=== PATIENT | female | born 1955 | race Caucasian/White ===

== ENCOUNTER 2019-09-15 15:27 | Outpatient (CLI) | payer MEDICARE ==
--- NOTE | 2019-09-15 16:13 | XRAY Report ---
Reason: PAIN IN UNSPECIFIED HAND/PAIN IN COCCYX Procedure Date: 09/15/2019 Accession Number: [id number] / [id number] Procedure: XR - Hand 3 View BILAT CPT Code: Final Report FULL RESULT: EXAMS: 1. Right Hand Radiography 2. Left Hand Radiography EXAM DATE: 09/15/2019 03:47 PM. CLINICAL HISTORY: Hand pain after fall. COMPARISON: None. TECHNIQUE: 3 views each hand. FINDINGS: Right: Bones: Normal. No fractures or bone lesions. Joints: There is predominantly distal interphalangeal joint space narrowing with proliferative as well as erosive changes, erosive arthritis. Similar changes are also seen at the first carpometacarpal articulation. Soft Tissues: Normal. No soft tissue swelling. Left: Bones: Normal. No fractures or bone lesions. Joints: Degenerative changes predominantly in the distal interphalangeal joints, to a lesser degree and proximal interphalangeal joints and at the first carpometacarpal articulation. Overall less severe on the left when compared to the right. Soft Tissues: Normal. No soft tissue swelling. 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 No acute fracture or dislocation. RADIA
--- NOTE | 2019-09-16 13:52 | XRAY Report ---
Reason: PAIN IN UNSPECIFIED HAND/PAIN IN COCCYX Procedure Date: 09/15/2019 Accession Number: [id number] / [id number] Procedure: XR - Sacrum/Coccyx CPT Code: Final Report FULL RESULT: EXAM: SACRUM AND COCCYX RADIOGRAPHY EXAM DATE: 09/15/2019 03:41 PM. HISTORY: PAIN IN UNSPECIFIED HAND/PAIN IN COCCYX. COMPARISONS: None. TECHNIQUE: 3 views. FINDINGS: Alignment: Normal. The sacrum and coccyx are normally aligned. Bones: Normal. No fracture or bone lesion. Joints: Grade 1 anterolisthesis and moderate disk height loss at L4-L5. The sacroiliac joints and visualized hips are within normal limits. Soft Tissues: Unremarkable. IMPRESSION: 1. Normal sacrum and coccyx radiography. 2. Moderate disk loss and grade 1 anterolisthesis at L4-L5. RADIA
== END 2019-09-15 15:28 | disposition home or self-care (01) ==
LOC: DI 15:27
PROVIDERS: ATTEND Nurse Practitioner Family
DX: M19.042 Primary osteoarthritis, left hand (principal); M19.041 Primary osteoarthritis, right hand; M18.0 Bilateral primary osteoarthritis of first carpometacarpal joints; M51.36 Other intervertebral disc degeneration, lumbar region; M43.16 Spondylolisthesis, lumbar region
CPT/HCPCS: 72220

== ENCOUNTER 2020-04-04 18:59 | Outpatient (CLI) | payer MEDICARE | END 2020-04-04 19:00 | disposition short-term general hospital (02) | LOC: EMS 18:59 | PROVIDERS: ATTEND Surgery | DX: R29.810 Facial weakness (principal); R53.1 Weakness; R13.10 Dysphagia, unspecified | CPT/HCPCS: A0425; A0429 ==

== ENCOUNTER 2021-08-02 21:36 | Outpatient (CLI) | payer MEDICARE | END 2021-08-02 21:37 | disposition critical access hospital (66) | LOC: EMS 21:36 | DX: R07.9 Chest pain, unspecified (principal) | CPT/HCPCS: A0425; A0427 ==

== ENCOUNTER 2021-08-02 22:10 | Emergency (ER) | payer MEDICARE ==
[2021-08-02 22:33] LABS: BASOPHILS # (AUTO) 0.1 10^3/uL (0.0-0.1); BASOPHILS % (AUTO) 0.6 %; EOSINOPHILS # (AUTO) 0.3 10^3/uL (0.0-0.7); HCT - HEMATOCRIT 36.7 % (37.0-47.0); HGB - HEMOGLOBIN 12.3 g/dL (12.0-16.0); LYMPHOCYTES # (AUTO) 2.8 10^3/uL (1.5-3.5); LYMPHOCYTES % (AUTO) 33.9 %; MEAN CORPUSCULAR HGB CONC 33.5 g/dL (32.0-36.0); MEAN CORPUSCULAR VOLUME 89.5 fL (81.0-99.0); MEAN PLATELET VOLUME 9.3 fL (7.9-10.8); MONOCYTES # (AUTO) 0.4 10^3/uL (0.0-1.0); NEUTROPHILS # (AUTO) 4.7 10^3/uL (1.5-6.6); PLT - PLATELET COUNT 250 10^3/uL (130-450); WHITE BLOOD COUNT 8.2 x10^3/uL (4.8-10.8)
[2021-08-02 22:47] LABS: ALBUMIN 4.2 g/dL (3.2-5.5); ALBUMIN/GLOBULIN RATIO 1.5 (1.0-2.2); BILIRUBIN,TOTAL 0.5 mg/dL (0.2-1.0); CALCIUM 9.8 mg/dL (8.5-10.3); CREATININE 0.7 mg/dL (0.4-1.0); POTASSIUM 3.9 mmol/L (3.5-5.0)
--- NOTE | 2021-08-02 23:16 | XRAY Report ---
PROCEDURE: Chest 1 View X-Ray INDICATIONS: Chest pain TECHNIQUE: One view of the chest was acquired. COMPARISON: None FINDINGS: Surgical changes and devices: None. Lungs and pleura: No pleural effusions or pneumothorax. Lungs are clear. Mediastinum: Mediastinal contours appear normal. Heart size is normal. Bones and chest wall: No suspicious bony lesions. Overlying soft tissues appear unremarkable. IMPRESSION: No evidence acute pulmonary process. Reviewed by: Karthikeyan Mondragon MD on 08/02/2021 11:15 PM PDT Approved by: Karthikeyan Mondragon MD on 08/02/2021 11:15 PM PDT Station ID: [id number]
--- NOTE | 2021-08-03 01:02 | ED Physician Documentation ---
PD HPI CHEST PAIN - Stated complaint Stated Complaint: CP - Chief complaint Chief Complaint: Cardiac - History obtained from History obtained from: Patient - Additional information Additional information: Patient comes emergency department chief complaint of stabbing sternal chest pain that started around 1900. Patient states that nothing seemed to really precipitated. She states that it lasted for 3 h and when the medics gave her a spray of nitro, it went away. Patient denies radiation of the pain. No nausea or vomiting. No which shortness of breath. No diaphoresis or lightheadedness. No other complaints at this time. She states she is currently pain-free. She has no known history of coronary artery disease. She is not a smoker and never has been. She does have a history of a CVA in the past and takes a baby aspirin daily for this. She denies recent dyspnea on exertion. No chest pain with exertion. Patient states she goes to the gym about 3 days a week and has not had any trouble. Review of Systems Ten Systems: 10 systems reviewed and negative Constitutional: reports: Reviewed and negative Eyes: reports: Reviewed and negative Ears: reports: Reviewed and negative Nose: reports: Reviewed and negative Throat: reports: Reviewed and negative Cardiac: reports: Reviewed and negative Respiratory: reports: Reviewed and negative GI: reports: Reviewed and negative : reports: Reviewed and negative Skin: reports: Reviewed and negative Musculoskeletal: reports: Reviewed and negative Neurologic: reports: Reviewed and negative Psychiatric: reports: Reviewed and negative Endocrine: reports: Reviewed and negative Immunocompromised: reports: Reviewed and negative PD PAST MEDICAL HISTORY - Past Medical History Past Medical History: Yes Cardiovascular: High cholesterol Respiratory: Sleep apnea, CPAP use Neuro: CVA Endocrine/Autoimmune: Type 2 diabetes Musculoskeletal: Osteoarthritis - Past Surgical History Past Surgical History: Yes General: Cholecystectomy Ortho: Knee replacement HEENT: Tonsil/Adenoidectomy - Present Medications Home Medications: Ambulatory Orders Medication Instructions Recorded Confirmed Ibuprofen [Motrin] 400 mg PO Q6H PRN #20 tablet 07/25/16 08/02/21 Acyclovir 400 mg PO BID 03/02/21 08/02/21 Aspirin [Aspirin EC] 81 mg PO DAILY 03/02/21 08/02/21 Atorvastatin Calcium [Lipitor] 80 mg PO QPM 03/02/21 08/02/21 Cyanocobalamin (Vitamin B-12) 1,000 mcg PO DAILY 03/02/21 08/02/21 [Vitamin B-12] Diclofenac Sodium [Voltaren 50 gm TP DAILY 03/02/21 08/02/21 Arthritis Pain] metFORMIN [Glucophage] 500 mg PO BID 03/02/21 08/02/21 Nitroglycerin [Nitrostat] 0.4 mg SL Q5MIN PRN #20 tablet 08/03/21 - Allergies Allergies/Adverse Reactions: Allergies Allergy/AdvReac Type Severity Reaction Status Date / Time allopurinol Allergy Edema Verified 08/02/21 22:15 Penicillins Allergy Rash Verified 08/02/21 22:15 - Social History Does the pt smoke?: No Smoking Status: Never smoker Does the pt drink ETOH?: Yes Does the pt have substance abuse?: No - Immunizations Immunizations are current?: No Immunizations: TDAP >10years/unknown PD ED PE NORMAL - Vitals Vital signs reviewed: Yes - General General: Alert and oriented X 3, No acute distress - HEENT HEENT: Atraumatic, PERRL, EOMI, Moist mucous membranes - Neck Neck: Supple, no meningeal sign - Cardiac Cardiac: RRR, No murmur, Strong equal pulses - Respiratory Respiratory: No respiratory distress, Clear bilaterally - Abdomen Abdomen: Soft, Non tender, Non distended - Derm Derm: Normal color, Warm and dry, No rash - Extremities Extremities: No deformity, No edema, No calf tenderness / cord - Neuro Neuro: Alert and oriented X 3, foot tender 2-12 intact, Normal speech, Other (Grossly intact) - Psych Psych: Normal mood, Normal affect Results - Vitals Vitals: Vital Signs - 24 hr 08/02/21 08/02/21 08/02/21 22:16 22:19 23:38 Temperature 36.2 C L 36.2 C L Heart Rate 59 L 59 L 53 L Respiratory 12 14 15 Rate Blood Pressure 167/70 H 167/70 H 126/57 L O2 Saturation 97 98 98 08/03/21 08/03/21 01:00 01:20 Temperature 36.4 C L 36.4 C L Heart Rate 63 63 Respiratory 18 18 Rate Blood Pressure 125/62 125/62 O2 Saturation 99 99 Oxygen O2 Source Room air - EKG (time done) 2212 Rate: Rate (enter#) (53) Rhythm: NSR [place]: LAD Intervals: Normal [place] QRS: Normal Ischemia: Normal ST segments. No: T wave inversion Compare to prior EKG: Old EKG unavailable Computer interpretation: Agree with computer - Labs Labs: Laboratory Tests 08/02/21 08/02/21 08/02/21 22:25 22:25 22:25 WBC 8.2 RBC 4.10 L Hgb 12.3 Hct 36.7 L MCV 89.5 MCH 30.0 MCHC 33.5 RDW 13.0 Plt Count 250 MPV 9.3 Neut # (Auto) 4.7 Lymph # (Auto) 2.8 [place] # (Auto) 0.4 Eos # (Auto) 0.3 Baso # (Auto) 0.1 Absolute Nucleated RBC 0.00 Nucleated RBC % 0.0 Sodium 140 Potassium 3.9 Chloride 103 Carbon Dioxide 28 Anion Gap 9.0 BUN 18 Creatinine 0.7 Estimated GFR (MDRD) 83 L Glucose 186 H Calcium 9.8 Total Bilirubin 0.5 AST 23 ALT 29 Alkaline Phosphatase 81 Troponin I High Sens 2.5 Total Protein 7.0 Albumin 4.2 Globulin 2.8 Albumin/Globulin Ratio 1.5 Lipase 38 08/03/21 00:24 WBC RBC Hgb Hct MCV MCH MCHC RDW Plt Count MPV Neut # (Auto) Lymph # (Auto) [place] # (Auto) Eos # (Auto) Baso # (Auto) Absolute Nucleated RBC Nucleated RBC % Sodium Potassium Chloride Carbon Dioxide Anion Gap BUN Creatinine Estimated GFR (MDRD) Glucose Calcium Total Bilirubin AST ALT Alkaline Phosphatase Troponin I High Sens 2.7 Total Protein Albumin Globulin Albumin/Globulin Ratio Lipase - Rads (name of study) CXR Radiology: Final report received, EMP read indepedently, See rad report (neg) PD MEDICAL DECISION MAKING - ED course Complexity details: reviewed results, re-evaluated patient, considered differential, d/w patient ED course: The patient was worked up with an initial cardiac panel of labs which showed a negative troponin at 2.5. Her EKG was unremarkable and chest x-ray was normal. Repeat troponin was drawn and was found to be 2.7 which was not a significant change. I discussed with the patient that I do not know with certainty what is caused her chest pain. Other than age, the patient is fairly low risk, but I do feel that she should follow-up with her doctor as soon as possible to schedule a stress test, particularly since her pain did relieve with nitro. I am giving her a prescription for sublingual nitroglycerin that she may use if needed between now and then. We have discussed having a low threshold for return should she have recurrence of chest pain, especially if it does not relieve with nitro or if she has other concerning associated symptoms. Patient is agreeable. Departure - Departure Disposition: 01 Home, Self Care Clinical Impression: Chest pain Qualifiers: Chest pain type: unspecified Qualified Code(s): R07.9 - Chest pain, unspecified Condition: Stable Instructions: ED Chest Pain Atypical Unkn Cause Prescriptions: Nitroglycerin [Nitrostat] 0.4 mg SL Q5MIN PRN #20 tablet PRN Reason: Chest Pain Comments: Your labs, EKG, and chest x-ray all look terrific. Your second troponin was almost exactly the same as the first. It does not appear that you have had a heart attack tonight. However, given your history of stroke it is best that you follow-up very soon with your primary care doctor to discuss having a stress test done. This will help further evaluate heart and light any lingering concerns of significant heart disease to rest. Since the nitroglycerin was helpful today, we'll give you a prescription For this to have at home as needed. If you have intense pain that is not helped by the nitroglycerin or anything else, especially if associated with shortness of breath, nausea, lightheadedness, or sweating, please return to the emergency department immediately. Discharge Date/Time: 08/03/21 01:20
[2021-08-03 01:03] VITALS: BP 125/62
== END 2021-08-03 01:20 | disposition home or self-care (01) ==
LOC: EDUNIT# → ED 22:10
DX: R07.89 Other chest pain (principal); Z86.73 Personal history of transient ischemic attack (TIA), and cerebral infarction without residual deficits; E11.9 Type 2 diabetes mellitus without complications; Z79.84 Long term (current) use of oral hypoglycemic drugs
CPT/HCPCS: 36415; 80053; 83690; 84484; 85025; 93005; 99284

== ENCOUNTER 2021-08-29 13:49 | Outpatient (CLI) | payer MEDICARE ==
--- NOTE | 2021-08-29 15:50 | DEXA Report ---
PROCEDURE: Dexa Spine and/or Hip INDICATIONS: ASYMPTOMATIC MENOPAUSAL STATE TECHNIQUE: Dual energy x-ray absorptiometry (DXA) was performed on a [employer] System. Regions measur ed are the AP Spine, femoral neck, and if needed forearm. COMPARISON: None. FINDINGS: Lumbar Spine: Bone Mineral Density 1.175 g/cm/cm,T score 0, normal Left Hip: Bone Mineral Density 0.898 g/cm/cm,T score -0.9, normal Left Femoral Neck: Bone Mineral Density 0.825 g/cm/cm, T score -1.5, mild osteopenia (T score greater or equal to -1.0: NORMAL) (T score from -1.1 to -2.4: OSTEOPENIA) (T score less than or equal to -2.5 to: OSTEOPOROSIS) Impression: Mild left femoral neck osteopenia. Patients with diagnosis of osteoporosis or osteopenia should have regular bone mineral density assess ment. For those eligible for Medicare, routine testing is allowed once every 2 years. Testing frequ ency can be increased for patients who have rapidly progressing disease or for those who are receivin g medical therapy to restore bone mass. Reviewed by: Jael Hebert MD on 08/29/2021 3:49 PM PDT Approved by: Jael Hebert MD on 08/29/2021 3:49 PM PDT Station ID: [id number]
== END 2021-08-29 13:50 | disposition home or self-care (01) ==
LOC: DI 13:49
PROVIDERS: ATTEND Nurse Practitioner Family
DX: M85.88 Other specified disorders of bone density and structure, other site (principal); Z78.0 Asymptomatic menopausal state

== ENCOUNTER 2021-08-29 13:50 | Outpatient (CLI) | payer MEDICARE ==
--- NOTE | 2021-08-30 08:03 | Mammography Report ---
BILATERAL DIGITAL SCREENING MAMMOGRAM 3D/2D: 08/29/2021 CLINICAL: Routine screening. Baseline exam. Last exam over 10 years ago. No prior exams were available for comparison. There are scattered fibroglandular elements in both br easts. There is a 0.9 cm oval focal asymmetry in the left breast at 1 o'clock anterior depth. No other significant masses, calcifications, or other findings are seen in either breast. IMPRESSION: INCOMPLETE: NEEDS ADDITIONAL IMAGING EVALUATION The 0.9 cm oval focal asymmetry in the left breast is indeterminate. Additional views with possible ultrasound are recommended. This exam was interpreted at Station ID: [id number]. NOTE: For mammograms, a report in lay terms will be sent to the patient. Approximately 15% of breast malignancies will not be visualized mammographically. In the management of a palpable breast mass, a negative mammogram must not discourage biopsy of a clinically suspicious lesion. Electronically Signed By: Noel kenny/alicia:08/29/2021 17:03:03 ACR BI-RADS Category 0: Incomplete 3340F PARENCHYMAL PATTERN: (A) - The breast(s) demonstrate(s) scattered fibroglandular densities. BI-RADS CATEGORY: (0) - 0 Mammo and [place] [id number] Immediate follow-up LATERALITY: (L)
== END 2021-08-29 13:51 | disposition home or self-care (01) ==
LOC: DI 13:50
PROVIDERS: ATTEND Nurse Practitioner Family
DX: Z12.31 Encounter for screening mammogram for malignant neoplasm of breast (principal); N64.89 Other specified disorders of breast

== ENCOUNTER 2021-09-09 11:07 | Outpatient (CLI) | payer MEDICARE ==
--- NOTE | 2021-09-09 12:06 | SLEEP CARE CONSULTATION ---
Information from patient questionnaire entered by Vanesa Gonzales. I have reviewed and concur with the information entered by Vanesa Gonzales. This document represents the service I personally performed and the decisions made by me, Irina Rodriguez ARNP. History of Present Illness Service Date and Time: 09/09/2021 1107 Reason for Visit: New patient, Previously diagnosed sleep apnea, sleep apnea on CPAP therapy Chief Complaint: reports: Other (update supplies) Date of Onset: 2007 Usual bedtime: 2200 Time it takes to fall asleep: 5-10 minutes Snores at night: Yes (if I don't use machine) Reasons for waking at night: reports: Bathroom Toss, Turn, or Twitch while sleeping: No Recalls having dreams: No Usually gets out of bed at: 0800 Feels refreshed in the morning: Yes Morning headache: No Sleepy or fatigued during the day: No Ever fallen asleep while driving: No Takes day naps: No Prior sleep studies: Yes Year and Where: 2011 or 2012 through [facility] Type of Sleep Study: Home sleep study Additional HPI information: MARK FAN was previously diagnosed to have unknown, AHI unknown, sleep apnea- hypopnea syndrome and comes in today to establish care for CPAP therapy and update supplies. - Parasomnia Symptoms Ever been unable to move upon waking from sleep: No Walks in sleep: No Talks in sleep: No Ever acted out dreams in sleep: No Ever felt weak in the knees when startled or emotional: No Bothered by creepy, crawly, restless sensations in legs: No Problems with memory or concentration: No CPAP Compliance Data - Data Reviewed with Patient Average duration of nightly device use: 7 hours 19 minutes Compliance rate %: 82 Current pressure setting (cmH2O): 4-20 (median 10.0, avg 11.7, max 12.8) Average residual AHI: 1.8 Central apnea: 0.1 Obstructive apnea: 1.3 Compliance data discussion: She has been using an Airsense 10 CPAP machine. She is using an AirFit N20 nasal mask. She has a back up mask and will use a travel APAP when traveling. She has been getting her supplies CPAP supply in [place], [place], online. Subjective Patient concerns: reports: air blowing in eyes (just needs adjustment, occasional), dry mouth, nose, throat (dry throat). denies: aerophagia, mask discomfort, mask leak noise, condensation in mask/hose, nasal congestion, epistaxis, other Observed to snore while using device: No Current pressure setting perceived as: comfortable On therapy, patient: reports: sleeping better, awakening more refreshed, being more awake and alert during the day, more rested overall. denies: drowsiness while driving Initial Jackson Sleepiness Scale score: 4 (in 2020) Past Medical History Past Medical History: reports: Diabetes, Stroke (04/04/2020), Arthritis, Gout, Other (high cholesterol) Social History The patient's occupation is a RE. Patient is Single and lives in . Have you smoked in the past 12 months: No Cigarettes per day (20/pack): 10 Years of smokin Quit date: 1972 Smoking Pack Years: 1.0 Alcohol use: Yes Alcohol amount and frequency: 1-2, once/twice per month Caffeine use: Yes Caffeine amount and frequency: 2-3 cups/day Family History Family history of sleep disordered breathing: Yes Family Hx Sleep Apnea: Sibling: Sleep apnea - Treated Allergies and Home Medications Drug allergies reviewed: Yes (allopurinol, penicillins) Home medication list reviewed: Yes (see list in chart, accurate; adding CA and Vit D) Physical Exam Vital signs obtained and entered by: CHELA Flood Blood Pressure: 127/64 Cuff size: wrist Heart Rate: 62 O2 Saturation: 98 Height: 5 ft 4 in Weight: 226 lb Body Mass Index: 38.7 BMI Classification: Obese Heart: regular rate and rhythm Lungs: clear bilaterally Impression and Plan 1. Obstructive Sleep Apnea-Hypopnea Syndrome, unknown, with good treatment compliance and good apnea control. On CPAP therapy, the patient has better sleep quality and is more rested overall. We are trying to obtain patient's last sleep study done in [place]. If we are able to receive this we can just write for a transfer of DME to update her supplies and get a mask refitting. I will have my transport coordinator inform of DME options. A DWO prescription will then be made. Patient also stating that the pressure feels low when she first puts on her mask at night. She states after a few minutes the pressure increases and is comfortable. The patients pressure will be changed to autoCPAP 10-13 cmH20 and increase her ramp starting pressure to 6 cmH2O for patient comfort. Patient advised to contact me if pressure change is uncomfortable so that it can be adjusted. Goals for apnea control discussed. Patient also would like to have a proper mask fitting since she has never had a mask fitting since she started using her CPAP. I can write for a mask refitting to ensure she is wearing the correct size of mask or she may choose to change to a different style of mask that is more comfortable. I will add this to her prescription to transfer her DME and update supplies once we have a copy of her sleep study. If we are unable to obtain a copy of her sleep study I will order a sleep study to be completed before we transfer her DME care. Patient's apnea severity and rationale for treatment to reduce apnea, improve sleep quality and reduce cardiovascular and cerebrovascular events was reviewed. I also reviewed the benefit of consistent device use of CPAP for cerebrovascular disease and diabetes. Patient was encouraged to lose weight for their overall health and to reduce apneas. * Change auto CPAP pressure to 10-13 cmH2O * Increase ramp starting pressure to 6 cmH2O * Transfer DME * Update supplies * Mask refitting * Notify me if snoring with mask or feeling that the pressure is too much or too little * Attempt to lose weight * Call this office if any problems using CPAP * Return for follow up either 1 year or after PSG (depending), or sooner if concerns arise Counseling Topics: Spare mask, Weight loss health impact Visit Type: In Office Time Spent with Patient (minutes): 42 Provider Statement: I spent 100% of the Face to Face Visit with the patient with greater than 50% spent counseling the patient and coordination of care.
[2021-09-09 12:07] VITALS: BP 127/64
== END 2021-09-09 11:08 | disposition home or self-care (01) ==
LOC: SC 11:07
PROVIDERS: ATTEND Nurse Practitioner Family
DX: G47.33 Obstructive sleep apnea (adult) (pediatric) (principal); E66.9 Obesity, unspecified; Z68.38 Body mass index [BMI] 38.0-38.9, adult
CPT/HCPCS: 99203; G0463; 99212

== ENCOUNTER 2021-09-21 08:00 | Outpatient (CLI) | payer MEDICARE ==
--- NOTE | 2021-09-23 08:57 | Ultrasound Report ---
LIMITED ULTRASOUND OF LEFT BREAST AND AXILLA: 09/21/2021 CLINICAL: Patient returns today to evaluate a focal asymmetry in the left breast. Comparison is made to exams dated: 09/21/2021 mammogram and 08/29/2021 mammogram - [facility]. Color flow ultrasound of the left breast 1 o'clock, and axilla regions was performed. Morales scale im ages of the real-time examination were reviewed. There is a 1 cm oval mass with a microlobulated margin in the left breast at 1 o'clock anterior depth 3 cm from the skin. This oval mass is hypoechoic with posterior acoustic shadowing. Color flow luis ging demonstrates that there is no vascularity present. IMPRESSION: SUSPICIOUS OF MALIGNANCY The 1 cm oval mass in the left breast is suspicious of malignancy. An ultrasound guided biopsy is re commended. This exam was interpreted at Station ID: [id number]. Electronically Signed By: Tom Stoner M.D., jr/alicia:09/21/2021 09:11:35 Ultrasound BI-RADS: 4 Suspicious for malignancy BI-RADS CATEGORY: (4) - 4 None [id number] Immediate follow-up LATERALITY: ()
--- NOTE | 2021-09-23 08:57 | Mammography Report ---
UNILATERAL LEFT DIGITAL DIAGNOSTIC MAMMOGRAM 3D/2D: 09/21/2021 CLINICAL: Patient returns today to evaluate a focal asymmetry in the left breast. Comparison is made to exam dated: 08/29/2021 mammogram - [facility]. There are sca ttered fibroglandular elements in left breast. There is a 1 cm oval focal asymmetry with an indistinct margin in the left breast at 1 o'clock anteri or depth 3.5 cm from the skin. No other significant masses or calcifications are seen in the breast. IMPRESSION: INCOMPLETE: NEEDS ADDITIONAL IMAGING EVALUATION The 1 cm oval focal asymmetry in the left breast is indeterminate. An ultrasound is recommended. This exam was interpreted at Station ID: [id number]. NOTE: For mammograms, a report in lay terms will be sent to the patient. Approximately 15% of breast malignancies will not be visualized mammographically. In the management of a palpable breast mass, a negative mammogram must not discourage biopsy of a clinically suspicious lesion. Electronically Signed By: Tom Stoner M.D., jr/alicia:09/21/2021 09:10:06 ACR BI-RADS Category 0: Incomplete 3340F PARENCHYMAL PATTERN: (A) - The breast(s) demonstrate(s) scattered fibroglandular densities. BI-RADS CATEGORY: (0) - 0 Ultrasound [id number] Immediate follow-up LATERALITY: (B)
== END 2021-09-21 08:01 | disposition home or self-care (01) ==
LOC: DI 08:00
PROVIDERS: ATTEND Nurse Practitioner Family
DX: R92.8 Other abnormal and inconclusive findings on diagnostic imaging of breast (principal)

== ENCOUNTER 2021-09-29 09:12 | Outpatient (CLI) | payer MEDICARE ==
[~2021-09-29 09:12] MED LIST: BUFFERED LIDOCAINE 10 ML SYRINGE ONE; LIDOCAINE 1%-EPI 1:100000 20 ML MDV ONE
[2021-09-29] MEDS ORDERED: BUFFERED LIDOCAINE 10 ML SYRINGE IU ONE (11:08)
[2021-09-29] MEDS ORDERED: LIDOCAINE 1%-EPI 1:100000 20 ML MDV SUBQ ONE (11:09)
--- NOTE | 2021-09-30 08:06 | Mammography Report ---
UNILATERAL LEFT DIGITAL DIAGNOSTIC MAMMOGRAM 3D/2D: 09/29/2021 CLINICAL: Post left breast ultrasound biopsy clip placement imaging. Comparison is made to exams dated: 09/21/2021 ultrasound, 09/21/2021 mammogram, and 08/29/2021 mammog [facility]. There are scattered fibroglandular elements in left breast. There is a 1 cm oval focal asymmetry with an indistinct margin in the left breast at 1 o'clock anteri or depth 3.5 cm from the skin. A marker has been placed at the site of mass. No other significant masses or calcifications are seen in the breast. IMPRESSION: INCOMPLETE: NEEDS ADDITIONAL IMAGING EVALUATION Post biopsy marker clip is in the region of the biopsied mass. This exam was interpreted at Station ID: [id number]. NOTE: For mammograms, a report in lay terms will be sent to the patient. Approximately 15% of breast malignancies will not be visualized mammographically. In the management of a palpable breast mass, a negative mammogram must not discourage biopsy of a clinically suspicious lesion. Electronically Signed By: Nallely rubalcava/:09/29/2021 11:34:28 ACR BI-RADS Category 0: Incomplete 3340F PARENCHYMAL PATTERN: (A) - The breast(s) demonstrate(s) scattered fibroglandular densities. BI-RADS CATEGORY: (0) - 0 None [id number] Immediate follow-up LATERALITY: ()
--- NOTE | 2021-10-04 06:24 | Ultrasound Report ---
ULTRASOUND GUIDED BIOPSY LEFT BREAST USING VACUUM DEVICE WITH MARKING DEVICE INSERTED AND POST DIGITA L MAMMOGRAPHIC IMAGIN09/29/2021 CLINICAL: Left breast mass. PATIENT CONSENT: Risks (minor bleeding, infection, vasovagal reaction and repeat procedure), benefits and alternatives were explained to the patient and written informed consent was obtained. Correlation is made to exams dated: 09/21/2021 ultrasound, 09/21/2021 mammogram, and 08/29/2021 mammo [facility]. An ultrasound guided biopsy using real-time ultrasound was performed for the 1 cm abnormality located in the left breast at 1 o'clock anterior depth 3 cm from the skin. The skin was prepped in the usua l manner. A vacuum assisted biopsy needle was placed adjacent to the abnormality under ultrasound gu idance. Once the needle was documented to be in the correct location, a specimen was obtained using an automated biopsy gun. A marker clip was placed at the site of biopsy The specimen was sent to the laboratory for pathological analysis. IMPRESSION: ULTRASOUND GUIDED BIOPSY MALIGNANT Ultrasound guided biopsy of the 1 cm mass in the left breast at 1 o'clock anterior depth 3 cm from th e skin was successful with no apparent post procedure complications. 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 Pathology results are concordant with imaging findings. A surgical/oncologic consu ltation is recommended. This exam was interpreted at Station ID: [id number]. Nallely rubalcava,jr/:10/03/2021 15:54:01 BI-RADS CATEGORY: () - Unspecified - other recall n/a LATERALITY: (B)
== END 2021-09-29 09:13 | disposition home or self-care (01) ==
LOC: DI 09:12
PROVIDERS: ATTEND Nurse Practitioner Family
DX: C50.412 Malignant neoplasm of upper-outer quadrant of left female breast (principal); Z17.0 Estrogen receptor positive status [ER+]
CPT/HCPCS: 19083

== ENCOUNTER 2021-12-13 09:32 | Outpatient (CLI) | payer MEDICARE | END 2021-12-13 09:33 | disposition home or self-care (01) | LOC: SC 09:32 | PROVIDERS: ATTEND Nurse Practitioner Family | DX: G47.33 Obstructive sleep apnea (adult) (pediatric) (principal); R09.02 Hypoxemia | CPT/HCPCS: G0399 ×2; 95806 ==

== ENCOUNTER 2021-12-30 09:06 | Outpatient (CLI) | payer MEDICARE ==
--- NOTE | 2021-12-30 09:16 | SLEEP CARE CONSULTATION ---
Information from patient questionnaire entered by Mark Flood MA. I have reviewed and concur with the information entered by Mark Flood MA. This document represents the service I personally performed and the decisions made by Michael mendez Caren J, ARNP. History of Present Illness Service Date and Time: 12/30/2021 09 Initial [place] Sleepiness Scale score: 4 (in 2020) Current [place] Sleepiness Scale score: 4 Additional HPI information: MARK FAN returns for follow up and results of the recently performed home sleep study. Patient study verified severe obstructive sleep apnea with an average AHI of 31.9 and [place] oxygen saturation of 77%. Patient is currently on nasal CPAP therapy. Nasal autoCPAP is set at 10-13 cmH20. Patient was cautioned about risks of drowsy driving until sleepiness symptoms resolve. Sleep Study - Results Type of Sleep Study: Home sleep study (F/U HOME STUDY) Prior sleep studies: Yes Year and Where: 2011 or 2012 through [facility] Polysomnography/Home Sleep Study results: Physician Impression: The quality of the study is good. The length of the study is adequate (> 240 minutes). Please also see the tabulated and graphic data. 1. Obstructive Sleep Apnea-Hypopnea (ICD-10 G47.33), severe, with an AHI of 31.9/hr and ed[place] SaO2 of 77%. During the study, the patient had 161 apneas (161 obstructive, 0 central, 0 mixed) and 75 hypopneas. The longest episode lasted 117.5 seconds. The respiratory events occurred independently of sleep stage and body position (supine AHI was 29.8 and non-supine, 32.65). 2. Hypoxemia (ICD-10 R09.02), moderate, with the lowest oxygen saturation of 77 % and 33.8 minutes with SaO2 under 90%. Baseline oxygen saturation was normal (Average oxygen saturation was 93%). Allergies and Home Medications Home medication list reviewed: Yes (no changes) Allergy and home medication list: Allergies allopurinol Allergy (Verified 08/02/21 22:15) Edema Penicillins Allergy (Verified 08/02/21 22:15) Rash Review of Systems Review of systems same as previous: No (reoccur breast cancer, another surgery on Sun) Physical Exam Vital signs obtained and entered by: Telehealth visit Height: 5 ft 4 in Impression and Plan 1. Obstructive Sleep Apnea-Hypopnea Syndrome, severe, with lowest oxygen saturation of 77%. Patient to continue using CPAP therapy. Continued positive pressure therapy could benefit cerebrovascular disease and diabetes. On CPAP therapy, the patient has better sleep quality and is more rested overall. She needs a DME supplier to get supplies. For patient supply concerns, I will have my business services coordinator inform of DME options. A DWO prescription will then be made. Patient advised to contact this office if further supply problems. She is using a nasal cushion mask that goes over the nose and is not sure if it is the optimal size for her. She has tried the small and the medium with equal results. I will write for a mask refitting to have size measurement for optimal mask done. She will continue with current pressure of 10-13 cmH2O at this time. I will follow up with her in 1 year. Patient's apnea severity and rationale for treatment to reduce apnea, improve sleep quality and reduce cardiovascular and cerebrovascular events was reviewed. I also reviewed the benefit of consistent device use of CPAP for cerebrovascular disease and diabetes. Patient was advised to try to lose weight to benefit her overall health and reduce apneas. 2. Hypoxemia, moderate, with the lowest oxygen saturation of 77 % and 33.8 minutes with SaO2 under 90%. Her baseline oxygen saturation was normal with an average oxygen saturation of 93%. * Continue auto CPAP pressure at 10-13 cmH2O * Transfer DME * Update supplies * Mask refitting for right size * Notify me if snoring with mask or feeling that the pressure is too much or too little * Attempt to lose weight * Call this office if any problems using CPAP * Return for follow up in 1 year, or sooner if concerns arise Counseling Topics: Weight loss health impact Visit Type: Telehealth Video Video Type: VSee Patient Location: Home Location of Provider: Office Patient agrees and consents to this telehealth visit type: Yes Patient agrees to have their insurance billed: Yes Time Spent with Patient (minutes): 22 Provider Statement: I spent 100% of the Telehealth Video Call with the patient with greater than 50% spent counseling the patient and coordination of care.
== END 2021-12-30 09:07 | disposition home or self-care (01) ==
LOC: SC 09:06
PROVIDERS: ATTEND Nurse Practitioner Family
DX: G47.33 Obstructive sleep apnea (adult) (pediatric) (principal); R09.02 Hypoxemia

== ENCOUNTER 2022-04-11 19:59 | Emergency (ER) | payer MEDICARE ==
[2022-04-11] MEDS ORDERED: lidocaine 1% 20 ML MDV SUBQ ONE (20:57)
--- NOTE | 2022-04-11 21:43 | ED Physician Documentation ---
PD HPI HEAD INJURY - Stated complaint Stated Complaint: FALL,HEAD INJ - Chief complaint Chief Complaint: Laceration - History obtained from History obtained from: Patient, Family - History of Present Illness Mechanism of head injury: Fell Where head injury occurred: Home Location of injury: Left, Back Quality of pain: Pain Associated symptoms: No: LOC, AMS, Amnesia, Nausea / vomiting, Neck pain, Paresthesias, Seizures, Ear drainage, Nasal drainage Symptoms improve with: Rest Symptoms worsen with: Palpation Contributing factors: No: Anticoagulated Similar symptoms before: Diagnosis (laceration) Recently seen: Not recently seen - Additional information Additional information: Previously well 66-year-old female missed a step fell backwards and hit her head against a right iron chair. She did not have loss of consciousness she denies any neck pain she has a laceration to her scalp. She is able to control the bleeding with direct pressure and comes into the emergency department for repair. PD PAST MEDICAL HISTORY - Past Medical History Cardiovascular: High cholesterol Respiratory: Sleep apnea, CPAP use Neuro: CVA Endocrine/Autoimmune: Type 2 diabetes Musculoskeletal: Osteoarthritis - Past Surgical History Past Surgical History: Yes General: Cholecystectomy Ortho: Knee replacement HEENT: Tonsil/Adenoidectomy - Present Medications Home Medications: Ambulatory Orders Medication Instructions Recorded Confirmed Ibuprofen [Motrin] 400 mg PO Q6H PRN #20 tablet 07/25/16 08/02/21 Acyclovir 400 mg PO BID 03/02/21 08/02/21 Aspirin [Aspirin EC] 81 mg PO DAILY 03/02/21 08/02/21 Atorvastatin Calcium [Lipitor] 80 mg PO QPM 03/02/21 08/02/21 Cyanocobalamin (Vitamin B-12) 1,000 mcg PO DAILY 03/02/21 08/02/21 [Vitamin B-12] Diclofenac Sodium [Voltaren 50 gm TP DAILY 03/02/21 08/02/21 Arthritis Pain] metFORMIN [Glucophage] 500 mg PO BID 03/02/21 08/02/21 Nitroglycerin [Nitrostat] 0.4 mg SL Q5MIN PRN #20 tablet 08/03/21 - Allergies Allergies/Adverse Reactions: Allergies Allergy/AdvReac Type Severity Reaction Status Date / Time allopurinol Allergy Edema Verified 04/11/22 20:14 Penicillins Allergy Rash Verified 04/11/22 20:14 - Social History Does the pt smoke?: No Smoking Status: Never smoker Does the pt drink ETOH?: Yes Does the pt have substance abuse?: No - Immunizations Immunizations are current?: No Immunizations: TDAP >10years/unknown Results - Vitals Vitals: Vital Signs - 24 hr 04/11/22 04/11/22 20:07 22:00 Temperature 36.3 C L Heart Rate 63 53 L Respiratory 16 15 Rate Blood Pressure 151/67 H 148/73 H O2 Saturation 98 99 Oxygen O2 Source Room air Departure - Departure Disposition: 01 Home, Self Care Clinical Impression: Occipital scalp laceration Qualifiers: Encounter type: initial encounter Qualified Code(s): S01.01XA - Laceration without foreign body of scalp, initial encounter Condition: Stable Instructions: ED Laceration Scalp Stitch Or Stap Follow-Up: STEPHENIE VELEZ DO [Primary Care Provider] - Comments: Carol be careful when you are washing your hair not to pull on your tim. We are expecting this laceration to heal up well and the tim should be removed in a week to 10 days. This requires a special device for removal and a follow- up with your primary care doctor is indicated. Discharge Date/Time: 04/11/22 22:00
[2022-04-11 22:03] VITALS: BP 148/73
--- OUTSIDE RECORDS SUMMARY | 2022-04-20 14:04 | EXTERNAL MEDICAL SUMMARY RPT | Continuity of Care Document ---
:1955 Author Organization [facility] Address [address] [place] [address] Phone Allergies and Intolerances date description facility type (no date) ALLOPURINOL [facility]unknown[facility] Encounters No information. Functional Status No information. Immunizations No information. Medications date description facility +0000 famotidine [facility] [phone] ibuprofen [facility] [phone]+0000 atorvastatin [facility] [phone]+0000 famotidine [facility] [phone]+0000 terbinafine hcl [facility] [phone]+0000 ibuprofen [facility] [phone]+0000 metformin [facility] [phone]+0000 atorvastatin [facility] [phone]+0000 terbinafine hcl [facility] [phone]+0000 metformin [facility] Problems No information. Procedures No information. Results/Labs No information. Social History date description facility +0000 Former smoker [facility] Vital Signs date measurement value units +0000 BMI BMI 39.07 kg/m2 +0000 heart_rate heart_rate 53 /min +0000 height_metric height_metric 161.93 cm +0000 height_standard height_standard 63.75 in +0000 temperature_metric temperature_metric 36.44 C +0000 temperature_standard temperature_standard 9 7.6 F +0000 weight_metric weight_metric 102.06 kg +0000 weight_standard weight_standard 225 lb
== END 2022-04-11 22:00 | disposition home or self-care (01) ==
LOC: ED 19:59
DX: S01.01XA Laceration without foreign body of scalp, initial encounter (principal); W10.9XXA Fall (on) (from) unspecified stairs and steps, initial encounter; Y92.009 Unspecified place in unspecified non-institutional (private) residence as the place of occurrence of the external cause
CPT/HCPCS: 99281

== ENCOUNTER 2022-07-28 09:09 | Outpatient (CLI) | payer MEDICARE | END 2022-07-28 09:10 | disposition EMS.NT | LOC: EMS 09:09 | DX: R51.9 Headache, unspecified (principal); W18.2XXA Fall in (into) shower or empty bathtub, initial encounter; Y92.002 Bathroom of unspecified non-institutional (private) residence as the place of occurrence of the external cause ==

== ENCOUNTER 2024-02-25 08:00 | Outpatient (CLI) | payer MEDICARE ==
--- NOTE | 2024-02-26 00:03 | XRAY Report ---
PROCEDURE: Shoulder 2+V RT INDICATIONS: MASS OF RIGHT SHOULDER TECHNIQUE: 3 views of the shoulder were acquired. COMPARISON: None. FINDINGS: Bones: No fractures or dislocations. No suspicious bony lesions. Visualized ribs appear intact. No osseous mass at the area of palpable concern. Soft tissues: No suspicious soft tissue calcifications. The visualized lungs are within normal limi ts. No definitive Soft tissue mass at the area of palpable concern. IMPRESSION: No definitive osseous or soft tissue mass at the area of palpable concern. However, soft tissue mass in particular may not be visualized by x-ray and if concern persists, CT is recommended. Reviewed by: Jael Hebert MD on 02/26/2024 12:01 AM PDT Approved by: Jael Hebert MD on 02/26/2024 12:01 AM PDT Station ID: [id number]
--- NOTE | 2024-02-26 13:02 | XRAY Report ---
PROCEDURE: Chest 2V INDICATIONS: MASS OF RIGHT SHOULDER TECHNIQUE: 2 views of the chest were acquired. COMPARISON: None. FINDINGS: Surgical changes and devices: None. Lungs and pleura: No pleural effusions or pneumothorax. Lungs are clear. Mediastinum: Mediastinal contours appear normal. Heart size is normal. Bones and chest wall: No suspicious bone lesions. There is a small BB along the right posterior ches t wall adjacent to the tip of the scapula. No corresponding radiographic abnormality in the soft tiss ues or underlying osseous structures. IMPRESSION: No acute cardiopulmonary disease. No radiographic evidence of soft tissue or bony abnormality in the area of mass. Focused ultrasound i s recommended for further soft tissue evaluation. Reviewed by: Leslie Echevarria MD on 02/26/2024 1:01 PM PDT Approved by: Leslie Echevarria MD on 02/26/2024 1:01 PM PDT Station ID: [id number]
== END 2024-02-25 23:59 | disposition home or self-care (01) ==
LOC: DI.S 08:00
PROVIDERS: ATTEND Nurse Practitioner
DX: M25.811 Other specified joint disorders, right shoulder (principal)

== ENCOUNTER 2024-03-02 07:13 | Outpatient (CLI) | payer MEDICARE ==
--- NOTE | 2024-03-02 10:42 | Ultrasound Report ---
PROCEDURE: Extremity Soft Tissue Limited INDICATIONS: SHOULDER MASS TECHNIQUE: Real-time scanning was performed of the shoulder, with image documentation. COMPARISON: None. Findings and impression: At the right posterior shoulder area of concern, there is a possible soft tissue mass measuring 6.9 x 2.5 x 3.3 cm. Echotexture is heterogeneous, with hypoechoic central regions. No significant vascular ity. Sonographic findings remain nonspecific for etiology and CT or MRI with contrast is recommended for further evaluation. Sampling could also be pursued depending on clinical context. This was marked in PACS as a result for follow-up. Reviewed by: Sundeep Acosta MD on 03/02/2024 10:41 AM PDT Approved by: Sundeep Acosta MD on 03/02/2024 10:41 AM PDT Station ID: [id number]
== END 2024-03-02 07:14 | disposition home or self-care (01) ==
LOC: DI 07:13
PROVIDERS: ATTEND Nurse Practitioner
DX: M25.811 Other specified joint disorders, right shoulder (principal)

== ENCOUNTER 2024-05-22 08:16 | Outpatient (CLI) | payer MEDICARE ==
--- NOTE | 2024-05-22 08:58 | Sleep Patient Instructions ---
Sleep Center Visit Summary - Patient Visit Information Reason for Visit: Annual follow-up - Patient Instructions Additional Instructions: You will continue with CPAP therapy with pressure changed to 10-12 cmH2O. A supply prescription will be updated with your DME. I have added an order to update your PAP machine. Please call the office to schedule a compliance follow up once you get your new device. We encourage you to continue to try to lose weight. Please follow up with the sleep care office one month after obtaining new device. - Clinic Information Contact: [facility] [address] [place] [address] [email or web address] T: [phone]
--- NOTE | 2024-05-22 09:00 | SLEEP CARE CONSULTATION ---
Information from patient questionnaire entered by Regino Gifford. I have reviewed and concur with the information entered by Regino Gifford. This document represents the service I personally performed and the decisions made by me, Irina Rodriguez ARNP. History of Present Illness Service Date and Time: 05/22/2024 0816 Previous diagnosis: Severe, Obstructive Sleep Apnea-Hypopnea Syndrome AHI: 31.9 (on 06/09/2014) Reason for follow up: annual (LAST SEEN 12/2021) Equipment type: CPAP (RESMED Airsense 10, S/U 03/08/21) Equipment obtained from: Other ([facility]; getting supplies) Mask style: Nasal Mask brand: Resmed (N20) Backup mask available: Yes Last cushion change: 6 months Prior sleep studies: Yes Year and Where: 2011 or 2012 through [facility] Type of Sleep Study: Home sleep study (F/U HOME STUDY) HPI additional information: MARK FAN was diagnosed to have severe, AHI 31.9, obstructive sleep apnea- hypopnea syndrome and returned today for CPAP therapy annual follow-up. Sleep Study - Results Type of Sleep Study: Home sleep study (F/U HOME STUDY) Prior sleep studies: Yes Year and Where: 2011 or 2012 through [facility] CPAP Compliance Data - Data Reviewed with Patient Average duration of nightly device use: 7 HRS 17 MINS Compliance rate %: 66 (05/20/23-05/18/24; 248/365 days used) Current pressure setting (cmH2O): 10-13 (avg 12.2, max 12.6) Average residual AHI: 2.1 Central apnea: 0.1 Obstructive apnea: 1.7 Hypopnea: 0.2 Compliance data discussion: She uses a travel CPAP, AirMini, on all gaps of use of her regular machine. Subjective Missed days of use due to: reports: travel (uses travel CPAP) Patient concerns: reports: air blowing in eyes, condensation in mask/hose (sometimes), dry mouth, nose, throat (sometimes). denies: aerophagia, mask discomfort, mask leak noise, nasal congestion, epistaxis Observed to snore while using device: No Current pressure setting perceived as: too high On therapy, patient: reports: sleeping better, awakening more refreshed, being more awake and alert during the day, more rested overall. denies: drowsiness while driving Initial [place] Sleepiness Scale score: 4 (in 2020) Current [place] Sleepiness Scale score: 6 Allergies and Home Medications Known drug allergies: Yes (as listed) Drug allergies reviewed: Yes Home medication list reviewed: Yes (Ozempic) Allergy and home medication list: Allergies allopurinol Allergy (Verified 05/22/24 08:18) Edema Penicillins Allergy (Verified 05/22/24 08:18) Rash Home Medications Medication Instructions Recorded Confirmed Last Taken Type Ibuprofen [Motrin] 400 mg PO Q6H PRN #20 tablet 07/25/16 05/22/24 Unknown Rx Acyclovir 400 mg PO BID 03/02/21 05/22/24 Unknown History Aspirin [Aspirin EC] 81 mg PO DAILY 03/02/21 05/22/24 Unknown History Atorvastatin Calcium [Lipitor] 80 mg PO QPM 03/02/21 05/22/24 Unknown History Cyanocobalamin (Vitamin B-12) 1,000 mcg PO DAILY 03/02/21 05/22/24 Unknown History [Vitamin B-12] Diclofenac Sodium [Voltaren 50 gm TP DAILY 03/02/21 05/22/24 Unknown History Arthritis Pain] metFORMIN [Glucophage] 500 mg PO BID 03/02/21 05/22/24 Unknown History Semaglutide [Ozempic] See Rx Instructions .ROUTE .COMPLEX 05/22/24 05/22/24 Unknown History Review of Systems Review of systems same as previous: Yes (NO CHANGE) Physical Exam Vital signs obtained and entered by: REGINO Alba MA Blood Pressure: 134/59 (LEFT ARM) Cuff size: long Heart Rate: 59 O2 Saturation: 96 Height: 5 ft 3 in Weight: 205 lb 12.8 oz Body Mass Index: 36.4 BMI Classification: Obese Impression and Plan 1. Obstructive Sleep Apnea-Hypopnea Syndrome, severe, with good treatment compliance and good apnea control. On CPAP therapy, the patient has better sleep quality and is more rested overall. She purchased her machine in 2018. The patients CPAP is over 5 years old and of reasonable use. Thus, the CPAP will be updated. The new CPAPs also have a better humidity system which could assist control of patients dryness symptoms. A DWO prescription will be made. Compliance guidelines for new device and follow up discussed. Patient's apnea severity and rationale for treatment to reduce apnea, improve sleep quality and reduce cardiovascular and cerebrovascular events was reviewed. I also reviewed the benefit of consistent device use of CPAP for cerebrovascular disease, diabetes. 2. Obesity, unspecified. Currently patients BMI is 36.4. She is losing weight. Obesity increases the risk of apnea, CPAP pressure requirements and overall health risks especially cardiovascular and diabetes. Thus patient is advised to continue to try lose weight. * Change auto CPAP pressure to 10-12 cmH2O * Update machine * Update supply prescription * Notify me if snoring with mask or feeling that the pressure is too much or too little * Attempt to lose weight * Call this office if any problems using CPAP * Return for follow up one month after obtaining new device, or sooner if concerns arise Adjust device pressure to (cmH2O): 10-12 Counseling Topics: Spare mask, Weight loss health impact Prescriptions: Auto CPAP, Device supplies Plan: compliance follow up with new device Visit Type: In Office Time Spent with Patient (minutes): 24 Provider Statement: I spent 100% of the Face to Face Visit with the patient with greater than 50% spent counseling the patient and coordination of care.
[2024-05-22 09:02] VITALS: BP 134/59; O2SAT 96
== END 2024-05-22 08:17 | disposition home or self-care (01) ==
LOC: SC 08:16
PROVIDERS: ATTEND Nurse Practitioner Family
DX: G47.33 Obstructive sleep apnea (adult) (pediatric) (principal); E66.9 Obesity, unspecified; Z68.36 Body mass index [BMI] 36.0-36.9, adult
CPT/HCPCS: 99213; G0463; 99212